=== PATIENT | female | born 1965 | race Caucasian/White ===

== ENCOUNTER → 2016-10-17 | Outpatient (CLI) | payer MEDICAID ==
[~2016-10-17] VITALS: Ht 154.9 cm; Wt 70.5 kg
[~2016-10-17] MED LIST: ALPHAGAN P 15 M15 ML OU; AMBIEN 5MG TABLE5 MG PO; CIPRO 500MG TA500 MG PO; CLARITIN 1010 MG/TAB PO; COLACE 100100 MG/CAP PO; CRESTOR20 MG PO; GLUCOPHAGE500 MG/TAB PO; JANUVIA 100MG100 MG PO; LANTUS SOLOS100 U/ML SC; LOMOTIL 0.025 M1 TAB PO; MULTI VITAMINS1 TAB PO; NASONEX SPRAY17 GM NS; NORCO 325 MG-51 TAB PO; OYSTER CALCIUM500 M1 PO; PRIL40 PO; VENTOLIN0.09 MG IH; VITAMIN C500 MG PO; VITAMIN D 50,1.25 MG PO; ZOLOFT 50MG50 MG PO
[2016-10-17 09:55] VITALS: BP 102/70; PULSE 73
[2016-10-17 10:58] VITALS: BP 109/65; PULSE 70
[2016-10-17 10:59] VITALS: BP 106/64; PULSE 96
[2016-10-17 11:00] VITALS: BP 106/64; BP 113/64; PULSE 96; PULSE 97
[2016-10-17 11:01] VITALS: BP 108/63; BP 113/64; PULSE 97
[2016-10-17 11:02] VITALS: BP 108/63; BP 97/64; PULSE 92; PULSE 97
== END ==
LOC: COL.CARD 09:15
DX: I44.7 Left bundle-branch block, unspecified (principal); G71.11 Myotonic muscular dystrophy; Z84.89 Family history of other specified conditions
CPT/HCPCS: A9502; J2785